=== PATIENT | female | born 1975 | race Two or more races ===

== ENCOUNTER 2025-05-11 08:58 | Outpatient (CLI) | payer OTHER | END 2025-05-11 09:03 | disposition home or self-care (01) | LOC: SONOGRAMA 08:58 | PROVIDERS: ATTEND Pathology Anatomic Pathology & Clinical Pathology | DX: D44.0 Neoplasm of uncertain behavior of thyroid gland (principal); E05.01 Thyrotoxicosis with diffuse goiter with thyrotoxic crisis or storm ==

== ENCOUNTER 2025-07-06 08:25 | Outpatient (CLI) | payer OTHER | END 2025-07-06 08:27 | disposition home or self-care (01) | LOC: SONOGRAMA 08:25 | PROVIDERS: ATTEND Pathology Anatomic Pathology & Clinical Pathology | DX: D34 Benign neoplasm of thyroid gland (principal); E07.89 Other specified disorders of thyroid; E04.2 Nontoxic multinodular goiter ==